=== PATIENT | male | born 1960 | race Caucasian/White ===

== ENCOUNTER 2018-03-26 12:09 | Emergency (ER) | payer BC ==
--- NOTE | 2018-03-26 13:27 | EKG ---
Test Date: 2018-03-26 Test Time: 12:25:02 Wardrobe Coordinator: FISH MEASUREMENT RESULTS: Intervals: Rate: 87 CA: 182 QRSD: 104 QT: 382 QTc: 459 [place]e: P: 36 CA: 182 QRS: 27 T: 39 INTERPRETIVE STATEMENTS: Normal sinus rhythm Normal ECG Compared to ECG 08/05/2014 12:03:10 No significant changes Electronically Signed On 03-26-18 13:27:01 CDT by Kodi Puente
[2018-03-26 13:29] LABS: Absolute Lymphocytes (CBC) 2.2 K/uL (0.7-4.9); Absolute Monocytes 0.6 K/uL (0.1-1.3); Absolute Neutrophil 5.8 K/uL (1.8-8.0); Basophils % 1.2 % (0-1.3); Lymphocytes % 24.8 % (15.3-44.8); MCV 95.1 fL (80-100); MPV 7.1 fL (7.6-11.3); Monocytes % 7.3 % (3.3-12.3); RBC Red Blood Cell Count 4.52 M/uL (4.33-5.43)
--- NOTE | 2018-03-26 13:32 | RAD REPORT ---
EXAM DESCRIPTION: CT - Head Brain Wo Cont - 03/26/2018 1:24 pm CLINICAL HISTORY: Dizziness, weakness, hypertension COMPARISON: None. TECHNIQUE: Axial 5 mm thick images of the head were obtained without IV contrast. All CT scans are performed using dose optimization technique as appropriate and may include automated exposure control or mA/KV adjustment according to patient size. FINDINGS: No intracranial hemorrhage, mass, edema or shift of mid-line structures. No acute cortical based infarction. No cortical edema or sulcal effacement. Early bifrontal lobe volume loss changes a re present. No measurable chronic ischemic change. No abnormal extra-axial fluid collections. Ventric les are normal. Mastoid air cells and visualized portions of the paranasal sinuses are clear. No acute bony findings. IMPRESSION: Negative non-contrast CT head examination for acute finding. Early bifrontal lobe volume loss.
[2018-03-26 13:36] LABS: Protime INR 0.97
[2018-03-26 13:42] LABS: Potassium 3.7 mEq/L (3.6-5.0)
--- NOTE | 2018-03-26 13:42 | RAD REPORT ---
EXAM DESCRIPTION: RAD - Chest Single View - 03/26/2018 1:37 pm CLINICAL HISTORY: Dizziness, shortness of breath COMPARISON: July 2014 TECHNIQUE: AP portable chest image was obtained 1330 hours . FINDINGS: No peripheral mass, consolidation or failure finding. Lung markings are similar to the com parison. Trachea is midline. Heart and vasculature are normal. No measurable pleural effusion and no pneumothorax. No gross bony abnormality seen. No acute aortic findings suspected. IMPRESSION: No acute cardiopulmonary process. No significant change from comparison.
[2018-03-26 13:51] LABS: Albumin 4.1 g/dL (3.2-5.5); Bilirubin Direct 0.2 mg/dL (0-0.2); Bilirubin Total 0.9 mg/dL (0.3-1.2); CKMB Creatine Kinase MB 1.1 ng/ml (0.3-4.0); Magnesium 1.9 mg/dL (1.8-2.5); Protein, Total 7.2 g/dL (6.0-8.3)
[2018-03-26 14:20] LABS: Urine Blood NEGATIVE (NEG); Urine Glucose NEGATIVE (NEG); Urine Protein NEGATIVE (NEG); Urine pH 5.5 (5.0-7.0)
[2018-03-26] MEDS ORDERED: ASPIRIN 81 MG CHEWABLE TABLET ONE (14:51)
--- NOTE | 2018-03-26 15:10 | EDPHYS ---
Physician Documentation [facility] Name: Harry Hughes Age: 58 yrs Sex: Male : 1960 Arrival Date: 03/26/2018 Time: 12:12 Bed 25 Private MD: ED Physician Demetri Davis HPI: 03/26 12:30 This 58 yrs old Male presents to ER via Ambulatory with complaints of cp Dizziness, High Blood Pressure. 12:30 The patient presents with lightheadedness. cp 12:30 Onset: The symptoms/episode began/occurred this morning, after awakening and continued cp at work. Was seen at employee clinic and blood pressure was measured to be elevated. Associated signs and symptoms: Pertinent negatives: abdominal pain, blurred vision, chest pain, diaphoresis, focal weakness, headache, near-syncope, numbness, palpitations, seizure, shortness of breath, syncope, vomiting. Patient's baseline: Neuro: alert and fully oriented, Motor: no deficits, Ambulation: walks without assistance, Speech: normal. Patient reports symptoms resolved while in ED. Historical: - Allergies: 12:19 No Known Allergies; hj - Home Meds: 12:19 hydrochlorothiazide 12.5 mg Oral cap 1 cap once daily [Active]; atorvastatin 20 mg oral hj tab 1 tab once daily [Active]; lisinopril 30 mg Oral tab 1 tab once daily [Active]; amlodipine 5 mg tab 1 tab once daily [Active]; allopurinol 300 mg Oral tab 1 tab once daily [Active]; verapamil 240 mg Oral C24P 1 cap once daily [Active]; aspirin 81 mg Oral TbEC 1 tab once daily [Active]; loratadine 10 mg oral TbDL 1 tab once daily [Active]; Flonase 50 mcg/actuation Nasal spsn 1 spray once daily [Active]; Zinc Sulfate Oral [Active]; Vitamin D3 oral oral [Active]; vitamin F63-tzdci acid oral oral [Active]; - PMHx: 12:19 Hyperlipidemia; Hypertension; CKD; hj - PSHx: 12:19 Knee surgery; hj - Immunization history:: Pneumococcal vaccine status is unknown. - Social history:: Smoking status: unknown. ROS: 12:35 Constitutional: Negative for body aches, chills, fever, poor PO intake. cp 12:35 Eyes: Negative for injury, pain, redness, and discharge. cp Exam: 12:41 Constitutional: The patient appears in no acute distress, alert, awake, cp non-diaphoretic, non-toxic, well developed, well nourished. 12:41 Head/Face: Normocephalic, atraumatic. Eyes: Pupils equal round and reactive to light, cp extra-ocular motions intact. Lids and lashes normal. Conjunctiva and sclera are non-icteric and not injected. Cornea within normal limits. Periorbital areas with no swelling, redness, or edema. ENT: Nares patent. No nasal discharge, no septal abnormalities noted. Tympanic membranes are normal and external auditory canals are clear. Oropharynx with no redness, swelling, or masses, exudates, or evidence of obstruction, uvula midline. Mucous membranes moist. Neck: Trachea midline, no thyromegaly or masses palpated, and no cervical lymphadenopathy. Supple, full range of motion without nuchal rigidity, or vertebral point tenderness. No Meningismus. Chest/axilla: Normal chest wall appearance and motion. Nontender with no deformity. No lesions are appreciated. 12:41 Cardiovascular: Rate: normal, Rhythm: regular, Pulses: Pulses are 2+ in right radial artery and left radial artery. Edema: is not appreciated, JVD: is not appreciated. 12:41 Respiratory: the patient does not display signs of respiratory distress, Respirations: normal, no use of accessory muscles, no retractions, no splinting, no tachypnea, labored breathing, is not present, Breath sounds: are clear throughout, no decreased breath sounds, no stridor, no wheezing. 12:41 Abdomen/GI: Inspection: abdomen appears normal, Bowel sounds: active, all quadrants, Palpation: abdomen is soft and non-tender, in all quadrants, rebound tenderness, is not appreciated, voluntary guarding, is not appreciated, involuntary guarding, is not appreciated. 12:41 Back: pain, is absent, ROM is normal. 12:41 Skin: cellulitis, is not appreciated, no rash present. 12:41 Neuro: Orientation: to person, place \T\ time. Mentation: lucid, able to follow commands, Cerebellar function: is grossly normal, Romberg testing is negative, Motor: moves all fours, strength is normal, Sensation: no obvious gross deficits. 14:33 ECG was reviewed by the Attending Physician. cp Vital Signs: 12:19 BP 117 / 95; Pulse 93; Resp 18; Temp 98.3(TE); Pulse Ox 96% on R/A; Weight 124.74 kg; hj Height 6 ft. 0 in. (182.88 cm); Pain 0/10; 12:47 BP 116 / 87 Supine; Pulse 85; la1 12:47 BP 129 / 89 Sitting; Pulse 88; la1 12:47 BP 121 / 90 Standing; Pulse 96; la1 14:54 BP 125 / 98; Pulse 82; Resp 19; Pulse Ox 97% on R/A; la1 12:19 Body Mass Index 37.30 (124.74 kg, 182.88 cm) hj MDM: 12:23 Patient medically screened. cp 13:00 Differential diagnosis: cardiac arrhythmia, CVA, generalized weakness, GI bleed, cp idiopathic dizziness, TIA. 15:08 Data reviewed: vital signs, nurses notes, lab test result(s), EKG, radiologic studies, cp CT scan, plain films, and as a result, I will discharge patient. 15:08 Counseling: I had a detailed discussion with the patient and/or guardian regarding: the cp historical points, exam findings, and any diagnostic results supporting the discharge/admit diagnosis, lab results, the need for outpatient follow up, a family practitioner, to return to the emergency department if symptoms worsen or persist or if there are any questions or concerns that arise at home. 03/26 13:11 Order name: Basic Metabolic Panel; Complete Time: 14:30 cp 03/26 14:30 Interpretation: Normal except: BUN 21; CRE 1.33; GFR 55. cp 03/26 13:11 Order name: BNP; Complete Time: 14:30 cp 03/26 13:11 Order name: CBC with Diff; Complete Time: 14:30 cp 03/26 14:31 Interpretation: Normal except: MPV 7.1. cp 03/26 13:11 Order name: Ckmb; Complete Time: 14:30 cp 03/26 13:11 Order name: CPK; Complete Time: 14:30 cp 03/26 13:11 Order name: LFT's; Complete Time: 14:30 cp 03/26 13:11 Order name: Magnesium; Complete Time: 14:30 cp 03/26 13:11 Order name: PT-INR; Complete Time: 14:30 cp 03/26 13:11 Order name: Ptt, Activated; Complete Time: 14:30 cp 03/26 13:11 Order name: Troponin (emerg Dept Use Only); Complete Time: 14:30 cp 03/26 13:11 Order name: XRAY Chest (1 view); Complete Time: 14:30 cp 03/26 14:31 Interpretation: Report review. cp 03/26 13:11 Order name: CT Head Brain wo Cont; Complete Time: 14:30 cp 03/26 14:31 Interpretation: Report reviewed. cp 03/26 14:17 Order name: Urine Dipstick--Ancillary (enter results); Complete Time: 14:30 bd 03/26 12:23 Order name: EKG; Complete Time: 12:23 cp 03/26 12:23 Order name: EKG - Nurse/Tech; Complete Time: 12:24 cp 03/26 12:30 Order name: Orthostatics; Complete Time: 12:46 cp 03/26 13:11 Order name: Cardiac monitoring; Complete Time: 13:28 cp 03/26 13:11 Order name: IV Saline Lock; Complete Time: 13:28 cp 03/26 13:11 Order name: Labs collected and sent; Complete Time: 13:28 cp 03/26 13:11 Order name: O2 Per Protocol; Complete Time: 13:28 cp 03/26 13:11 Order name: O2 Sat Monitoring; Complete Time: 13:28 cp 03/26 13:11 Order name: Urine Dipstick-Ancillary (obtain specimen); Complete Time: 13:43 cp EC:33 Rate is 87 beats/min. Rhythm is regular. SC interval is normal. QRS interval is cp prolonged at 104 msec. QT interval is normal. No ST changes noted. Interpreted by me. Reviewed by me. Administered Medications: 14:54 Drug: Aspirin Chewable Tablet 324 mg Route: PO; la1 15:25 Follow up: Response: No adverse reaction rk2 15:15 CANCELLED (Physician Discretion): NS 0.9% 1000 ml IV at 100 ml/hr continuous cp Disposition: 16:53 Co-signature as Attending Physician, Demetri Davis MD. rn Disposition: 03/26/18 15:10 Discharged to Home. Impression: Dizziness. - Condition is Stable. - Discharge Instructions: Dizziness, Aspirin and Your Heart. - Prescriptions for Meclizine 25 mg Oral Tablet - take 1 tablet by ORAL route every 8 hours As needed; 30 tablet. Zofran 4 mg Oral Tablet - take 1 tablet by ORAL route every 12 hours As needed; 20 tablet. - Medication Reconciliation Form, Thank You Letter, Antibiotic Education, Prescription Opioid Use form. - Follow up: Private Physician; When: 1 - 2 days; Reason: Recheck today's complaints. - Problem is new. - Symptoms have improved. Signatures: Dispatcher [employer] EDMS Demetri Davis MD MD rn Attema, Lee, RN RN la1 Saturnino Zamudio RN RN hj Vernon De La Vega, RAUL PA Anushka Martins RN RN rk2 Corrections: (The following items were deleted from the chart) 15:15 15:03 NS 0.9% 1000 ml IV at 100 ml/hr continuous ordered. cp cp 15:26 15:10 03/26/2018 15:10 Discharged to Home. Impression: Dizziness. Condition is Stable. rk2 Forms are Medication Reconciliation Form, Thank You Letter, Antibiotic Education, Prescription Opioid Use. Follow up: Private Physician; When: 1 - 2 days; Reason: Recheck today's complaints. Problem is new. Symptoms have improved. cp
--- NOTE | 2018-03-26 15:10 | ER ---
Nurse's Notes [facility] Name: Harry Hughes Age: 58 yrs Sex: Male : 1960 Arrival Date: 03/26/2018 Time: 12:12 Bed 25 Private MD: Diagnosis: Dizziness Presentation: 03/26 12:14 Presenting complaint: Patient states: i feel fuzzy today, my heart is debbie fluttery hj today; denies SOB; i feel dizzy as well; i checked my BP- 154/80; HR- 95;. Transition of care: patient was not received from another setting of care. Onset of symptoms was March 26, 2018. Initial Sepsis Screen: Does the patient meet any 2 criteria? No. Patient's initial sepsis screen is negative. Does the patient have a suspected source of infection? No. Patient's initial sepsis screen is negative. Care prior to arrival: None. 12:14 Method Of Arrival: Ambulatory 12:14 Acuity: DOUGLAS 3 hj Triage Assessment: 12:19 General: Appears in no apparent distress. uncomfortable, Behavior is calm, cooperative, hj appropriate for age. Pain: Denies pain. Historical: - Allergies: 12:19 No Known Allergies; hj - Home Meds: 12:19 hydrochlorothiazide 12.5 mg Oral cap 1 cap once daily [Active]; atorvastatin 20 mg oral hj tab 1 tab once daily [Active]; lisinopril 30 mg Oral tab 1 tab once daily [Active]; amlodipine 5 mg tab 1 tab once daily [Active]; allopurinol 300 mg Oral tab 1 tab once daily [Active]; verapamil 240 mg Oral C24P 1 cap once daily [Active]; aspirin 81 mg Oral TbEC 1 tab once daily [Active]; loratadine 10 mg oral TbDL 1 tab once daily [Active]; Flonase 50 mcg/actuation Nasal spsn 1 spray once daily [Active]; Zinc Sulfate Oral [Active]; Vitamin D3 oral oral [Active]; vitamin D73-venfy acid oral oral [Active]; - PMHx: 12:19 Hyperlipidemia; Hypertension; CKD; hj - PSHx: 12:19 Knee surgery; hj - Immunization history:: Pneumococcal vaccine status is unknown. - Social history:: Smoking status: unknown. Screenin:48 Abuse screen: Denies threats or abuse. Nutritional screening: No deficits noted. la1 Tuberculosis screening: No symptoms or risk factors identified. Fall Risk None identified. Assessment: 12:48 General: Appears in no apparent distress. Behavior is calm, cooperative. Pain: Denies la1 pain. Neuro: Level of Consciousness is awake, alert, obeys commands, Oriented to person, place, time, situation. Cardiovascular: Capillary refill < 3 seconds Patient's skin is warm and dry. Respiratory: Airway is patent Respiratory effort is even, unlabored, Respiratory pattern is regular, symmetrical, Breath sounds are clear bilaterally. GI: Abdomen is round non-distended, Bowel sounds present X 4 quads. : No signs and/or symptoms were reported regarding the genitourinary system. 14:49 Reassessment: Patient appears in no apparent distress at this time. No changes from la1 previously documented assessment. Patient and/or family updated on plan of care and expected duration. Pain level reassessed. Patient is alert, oriented x 3, equal unlabored respirations, skin warm/dry/pink. Vital Signs: 12:19 BP 117 / 95; Pulse 93; Resp 18; Temp 98.3(TE); Pulse Ox 96% on R/A; Weight 124.74 kg; hj Height 6 ft. 0 in. (182.88 cm); Pain 0/10; 12:47 BP 116 / 87 Supine; Pulse 85; la1 12:47 BP 129 / 89 Sitting; Pulse 88; la1 12:47 BP 121 / 90 Standing; Pulse 96; la1 14:54 BP 125 / 98; Pulse 82; Resp 19; Pulse Ox 97% on R/A; la1 12:19 Body Mass Index 37.30 (124.74 kg, 182.88 cm) ED Course: 12:12 Patient arrived in ED. mr 12:16 Triage completed. hj 12:20 Phani Mcclure, RN is Primary Nurse. la1 12:20 Arm band placed on right wrist. hj 12:23 Vernon De La Vega PA is PHCP. cp 12:23 Demetri Davis MD is Attending Physician. cp 12:33 EKG done, by computer technical specialist. reviewed by Demetri Davis MD. tc 12:48 Call light in reach. film touch up inspector on. Pulse ox on. NIBP on. la1 13:24 CT Head Brain wo Cont In Process Unspecified. EDMS 13:28 No provider procedures requiring assistance completed. Inserted saline lock: 20 gauge la1 in left antecubital area, using aseptic technique. Blood collected. 13:37 XRAY Chest (1 view) In Process Unspecified. EDMS 15:26 IV discontinued. rk2 Administered Medications: 14:54 Drug: Aspirin Chewable Tablet 324 mg Route: PO; la1 15:25 Follow up: Response: No adverse reaction rk2 15:15 CANCELLED (Physician Discretion): NS 0.9% 1000 ml IV at 100 ml/hr continuous cp Outcome: 15:10 Discharge ordered by MD. cp 15:26 Discharged to home ambulatory. rk2 15:26 Condition: good 15:26 Discharge instructions given to patient, Prescriptions given X 2. 15:26 Patient left the ED. rk2 Signatures: Dispatcher [employer] EDMS Rody Keith AustenNina, geological technician EKG Ttc Phani Mcclure RN RN la1 Saturnino Zamudio RN RN Vernon Clement PA PA cp Kidder, Rhonda, RN RN rk2
== END 2018-03-26 15:26 | disposition home or self-care (01) ==
LOC: ER 12:09
DX: R42 Dizziness and giddiness (principal); I12.9 Hypertensive chronic kidney disease with stage 1 through stage 4 chronic kidney disease, or unspecified chronic kidney disease; N18.9 Chronic kidney disease, unspecified; E78.5 Hyperlipidemia, unspecified; Z79.82 Long term (current) use of aspirin
CPT/HCPCS: 36415; 70450; 71045; 80048; 80076; 81003; 82550; 82553; 83735; 83880; 84484; 85025; 85610; 85730; 93005; 99285

== ENCOUNTER 2019-12-22 19:17 | Emergency (ER) | payer BC ==
[2019-12-22] MEDS ORDERED: NA CHLORIDE 0.9% 1,000 ML ONE (20:06)
[2019-12-22] MEDS ORDERED: METOPROLOL TARTRATE 5 MG/5 ML INJ IV ONE (20:06)
[2019-12-22 20:14] LABS: Absolute Lymphocytes (CBC) 2.4 K/uL (0.7-4.9); Basophils % 1.1 % (0-1.3); Hematocrit 43.6 % (39.6-49.0); Lymphocytes % 26.7 % (15.3-44.8); MPV 7.5 fL (7.6-11.3); RBC Red Blood Cell Count 4.43 M/uL (4.33-5.43)
[2019-12-22 20:15] LABS: Protime INR 1.03
[2019-12-22 20:33] LABS: ALT/SGPT 18 U/L (12-78); AST/SGOT 12 U/L (15-37); Albumin 3.5 g/dL (3.4-5.0); Alkaline Phosphatase 59 U/L (45-117); BUN Blood Urea Nitrogen 21 mg/dL (7-18); Bicarbonate 26 mmol/L (21-32); Bilirubin Direct 0.1 mg/dL (0-0.2); Bilirubin Total 0.5 mg/dL (0.2-1.0); Glucose Level 80 mg/dL (74-106); Magnesium 1.9 mg/dL (1.8-2.4); NT PRO-BNP 226 pg/mL (<125); Potassium 3.5 mmol/L (3.5-5.1); Protein, Total 6.7 g/dL (6.4-8.2); Sodium Level 146 mmol/L (136-145); Troponin (Emerg Dept Use Only) < 0.02 ng/mL (0.0-0.045)
--- NOTE | 2019-12-22 21:41 | ER ---
Nurse's Notes [facility] Name: Harry Hughes Age: 59 yrs Sex: Male : 1960 Arrival Date: 12/22/2019 Time: 19:19 Bed 15 Private MD: Diagnosis: Palpitations. Near syncope Presentation: 12/22 19:28 Presenting complaint: Patient states: Light headedness that started one hour ago, aj1 states that he has had episodes of A-Fib in the past, but they are having a hard time catching it. Reports chest tightness, denies palpitations. Transition of care: patient was not received from another setting of care. Onset of symptoms was December 22, 2019. Risk Assessment: Do you want to hurt yourself or someone else? Patient reports no desire to harm self or others. Initial Sepsis Screen: Does the patient meet any 2 criteria? HR > 90 bpm. No. Patient's initial sepsis screen is negative. Does the patient have a suspected source of infection? No. Patient's initial sepsis screen is negative. Care prior to arrival: None. 19:28 Method Of Arrival: Ambulatory [facility] 19:28 Method Of Arrival: Ambulatory [facility] 19:28 Acuity: DOUGLAS 2 jb4 Triage Assessment: :33 General: Appears in no apparent distress. comfortable, Behavior is calm, cooperative, aj1 appropriate for age. Pain: Complains of pain in chest Pain currently is 1 out of 10 on a pain scale. Quality of pain is described as pressure. Neuro: Level of Consciousness is awake, alert, obeys commands, Oriented to person, place, time, situation. Cardiovascular: Patient's skin is warm and dry. Cardiovascular: Reports chest pain, lightheadedness. Respiratory: Airway is patent Respiratory effort is even, unlabored, Respiratory pattern is regular, symmetrical. Historical: - Allergies: 19:33 No Known Allergies; aj1 - Home Meds: 19:33 allopurinol 300 mg Oral tab 1 tab once daily [Active]; amlodipine 5 mg tab 1 tab once aj1 daily [Active]; hydrochlorothiazide 12.5 mg Oral cap 1 cap once daily [Active]; lisinopril 30 mg Oral tab 1 tab once daily [Active]; tamsulosin 0.4 mg oral cp24 1 cap once daily [Active]; verapamil 240 mg Oral C24P 1 cap once daily [Active]; aspirin 81 mg Oral TbEC 1 tab once daily [Active]; Flonase 50 mcg/actuation Nasal spsn 1 spray once daily [Active]; loratadine 10 mg Oral TbDL 1 tab once daily [Active]; vitamin A94-eipkq acid Oral [Active]; Zinc Sulfate Oral [Active]; Vitamin D3 Oral [Active]; CoQ-10 100 mg oral cap daily [Active]; Fish Oil oral oral daily [Active]; magnesium oxide 250 mg Oral tab daily [Active]; - PMHx: 19:33 CKD; Hyperlipidemia; Hypertension; kidney disease; Atrial Fib; aj1 - Immunization history:: Flu vaccine is not up to date. - Coronavirus screen:: The patient has NOT traveled to [place], [place], or [place] in the past 14 days. - Social history:: Smoking status: Patient/guardian denies using tobacco. - Ebola Screening: : Patient denies travel to an Ebola-affected area in the 21 days before illness onset. Screenin:40 Abuse screen: Denies threats or abuse. Nutritional screening: No deficits noted. jb4 Tuberculosis screening: No symptoms or risk factors identified. Fall Risk None identified. Assessment: 19:40 General: Appears in no apparent distress. uncomfortable, Behavior is calm, cooperative, jb4 appropriate for age, PT states " it feels like my heart is fluttering in my chest, but it comes and goes and when it does, it radiates up into my neck.". Pain: Denies pain. Neuro: Level of Consciousness is awake, alert, obeys commands, Oriented to person, place, time, situation, Reports dizziness, feeling light headed. Cardiovascular: Patient's skin is warm and dry. Respiratory: Airway is patent Respiratory effort is even, unlabored, Respiratory pattern is regular, symmetrical. GI: No signs and/or symptoms were reported involving the gastrointestinal system. : No signs and/or symptoms were reported regarding the genitourinary system. EENT: No signs and/or symptoms were reported regarding the EENT system. Derm: Skin is intact, Skin is pink, warm \\T\\ dry. Musculoskeletal: Circulation, motion, and sensation intact. Range of motion: intact in all extremities. 19:45 Reassessment: Pt heart rate 202, reports feeling light headed and dizzy, provider jb4 notified, see MAR for orders. 21:00 Reassessment: Patient appears in no apparent distress at this time. Patient and/or jb4 family updated on plan of care and expected duration. Pain level reassessed. Patient is alert, oriented x 3, equal unlabored respirations, skin warm/dry/pink. Patient states feeling better. 22:06 Reassessment: Patient appears in no apparent distress at this time. Patient and/or jb4 family updated on plan of care and expected duration. Pain level reassessed. Patient is alert, oriented x 3, equal unlabored respirations, skin warm/dry/pink. PT and family verbalized understanding of d/c and follow up instructions. Patient states feeling better. Vital Signs: 19:33 BP 125 / 89; Pulse 98; Resp 18; Temp 97.9; Pulse Ox 98% on R/A; Weight 108.86 kg (R); aj1 Height 6 ft. 0 in. (182.88 cm) (R); Pain 1/10; 20:30 BP 104 / 87; Pulse 83; Resp 11 S; Pulse Ox 97% on R/A; jb4 21:10 BP 122 / 89; Pulse 85; Resp 19 S; Pulse Ox 95% on R/A; jb4 21:30 BP 123 / 88; Pulse 86; Resp 17 S; Pulse Ox 97% on R/A; jb4 19:33 Body Mass Index 32.55 (108.86 kg, 182.88 cm) aj1 ED Course: 19:19 Patient arrived in ED. es 19:30 Triage completed. aj1 19:33 Arm band placed on Patient placed in an exam room. aj1 19:37 Freddy Godoy, RN is Primary Nurse. jb4 19:40 Tadeo Jimenez MD is Attending Physician. pkl 19:40 Patient has correct armband on for positive identification. Placed in gown. Bed in low jb4 position. Call light in reach. Side rails up X 1. playground monitor on. Pulse ox on. NIBP on. 20:05 Initial lab(s) drawn, by me, sent to lab. EKG done, by ED staff, reviewed by Tadeo persaud MD. Inserted saline lock: 20 gauge in right forearm, using aseptic technique. 20:49 XRAY Chest (1 view) In Process Unspecified. EDMS 20:50 X-ray completed. Portable x-ray completed in exam room. Patient tolerated procedure mh1 well. 21:40 Kodi Puente MD is Referral Physician. pkl 22:08 No provider procedures requiring assistance completed. IV discontinued, intact, jb4 bleeding controlled, No redness/swelling at site. Pressure dressing applied. Administered Medications: 20:13 Drug: NS 0.9% 1000 ml Route: IV; Rate: 100 ml/hr; Site: right forearm; jb4 22:00 Follow up: Response: No adverse reaction; IV Status: Order to discontinue infusion jb4 20:13 Drug: Lopressor 5 mg Route: IVP; Site: right forearm; jb4 21:00 Follow up: Response: No adverse reaction; No adverse reaction, Heart rate decreased and jb4 maintained at 80-90 Outcome: 21:41 Discharge ordered by . pkl 22:08 Discharged to home ambulatory, with family. jb4 22:08 Condition: stable 22:08 Discharge instructions given to patient, family, Instructed on discharge instructions, follow up and referral plans. medication usage, Demonstrated understanding of instructions, follow-up care, medications, Prescriptions given X 1. 22:10 Patient left the ED. jb4 Signatures: Dispatcher [employer] Anya Case RN RN aj1 Tadeo Jimenez MD MD pk Anna Baum [facility] Freddy Godoy, RN RN jb4 Corrections: (The following items were deleted from the chart) 21:05 19:28 Acuity: DOUGLAS 3 aj1 jb4 22:08 21:30 No provider procedures requiring assistance completed. jb4 jb4 22:08 21:30 IV discontinued, intact, bleeding controlled, No redness/swelling at site. jb4 Pressure dressing applied, jb4
--- NOTE | 2019-12-22 21:42 | EDPHYS ---
Physician Documentation [facility] Name: Harry Hughes Age: 59 yrs Sex: Male : 1960 Arrival Date: 12/22/2019 Time: 19:19 Bed 15 Private MD: ED Physician Tadeo Jimenez HPI: 12/22 19:56 This 59 yrs old Male presents to ER via Ambulatory with complaints of Lighted pkl headed, Near Syncope, Blood Pressure Problem, heart fluter. 19:56 The patient presents with a history of irregular heart beat. Context: The symptoms pkl occur and the patient has a history of Atrial fibrillation. Onset: The symptoms/episode began/occurred just prior to arrival, 1 hour(s) ago. Associated signs and symptoms: Pertinent positives: lightheadedness, near-syncope, tightness in chest. The patient has experienced similar episodes in the past, a few times. Historical: - Allergies: 19:33 No Known Allergies; aj1 - Home Meds: 19:33 allopurinol 300 mg Oral tab 1 tab once daily [Active]; amlodipine 5 mg tab 1 tab once aj1 daily [Active]; hydrochlorothiazide 12.5 mg Oral cap 1 cap once daily [Active]; lisinopril 30 mg Oral tab 1 tab once daily [Active]; tamsulosin 0.4 mg oral cp24 1 cap once daily [Active]; verapamil 240 mg Oral C24P 1 cap once daily [Active]; aspirin 81 mg Oral TbEC 1 tab once daily [Active]; Flonase 50 mcg/actuation Nasal spsn 1 spray once daily [Active]; loratadine 10 mg Oral TbDL 1 tab once daily [Active]; vitamin B33-afrfy acid Oral [Active]; Zinc Sulfate Oral [Active]; Vitamin D3 Oral [Active]; CoQ-10 100 mg oral cap daily [Active]; Fish Oil oral oral daily [Active]; magnesium oxide 250 mg Oral tab daily [Active]; - PMHx: 19:33 CKD; Hyperlipidemia; Hypertension; kidney disease; Atrial Fib; aj1 - Immunization history:: Flu vaccine is not up to date. - Coronavirus screen:: The patient has NOT traveled to [place], [place], or [place] in the past 14 days. - Social history:: Smoking status: Patient/guardian denies using tobacco. - Ebola Screening: : Patient denies travel to an Ebola-affected area in the 21 days before illness onset. ROS: 19:56 Eyes: Negative for injury, pain, redness, and discharge, ENT: Negative for injury, pkl pain, and discharge, Neck: Negative for injury, pain, and swelling. 19:56 Cardiovascular: Positive for palpitations. 19:56 Respiratory: Negative for cough, shortness of breath. 19:56 Abdomen/GI: Negative for abdominal pain, nausea, vomiting, and diarrhea. 19:56 Back: Negative for acute changes. 19:56 : Negative for urinary symptoms. 19:56 MS/extremity: Negative for acute changes. 19:56 Skin: Negative for rash. 19:56 Neuro: Positive for near syncope, Negative for altered mental status, loss of consciousness. Exam: 19:56 Head/Face: Normocephalic, atraumatic. Eyes: Pupils equal round and reactive to light, pkl extra-ocular motions intact. Lids and lashes normal. Conjunctiva and sclera are non-icteric and not injected. Cornea within normal limits. Periorbital areas with no swelling, redness, or edema. ENT: Nares patent. No nasal discharge, no septal abnormalities noted. Tympanic membranes are normal and external auditory canals are clear. Oropharynx with no redness, swelling, or masses, exudates, or evidence of obstruction, uvula midline. Mucous membranes moist. Neck: Trachea midline, no thyromegaly or masses palpated, and no cervical lymphadenopathy. Supple, full range of motion without nuchal rigidity, or vertebral point tenderness. No Meningismus. Chest/axilla: Normal chest wall appearance and motion. Nontender with no deformity. No lesions are appreciated. Cardiovascular: Regular rate and rhythm with a normal S1 and S2. No gallops, murmurs, or rubs. Normal PMI, no JVD. No pulse deficits. Respiratory: Lungs have equal breath sounds bilaterally, clear to auscultation and percussion. No rales, rhonchi or wheezes noted. No increased work of breathing, no retractions or nasal flaring. Abdomen/GI: Soft, non-tender, with normal bowel sounds. No distension or tympany. No guarding or rebound. No evidence of tenderness throughout. Back: No spinal tenderness. No costovertebral tenderness. Full range of motion. Skin: Warm, dry with normal turgor. Normal color with no rashes, no lesions, and no evidence of cellulitis. MS/ Extremity: Pulses equal, no cyanosis. Neurovascular intact. Full, normal range of motion. Neuro: Awake and alert, GCS 15, oriented to person, place, time, and situation. Cranial nerves II-XII grossly intact. Motor strength 5/5 in all extremities. Sensory grossly intact. Cerebellar exam normal. Normal gait. Vital Signs: 19:33 BP 125 / 89; Pulse 98; Resp 18; Temp 97.9; Pulse Ox 98% on R/A; Weight 108.86 kg (R); aj1 Height 6 ft. 0 in. (182.88 cm) (R); Pain 1/10; 20:30 BP 104 / 87; Pulse 83; Resp 11 S; Pulse Ox 97% on R/A; jb4 21:10 BP 122 / 89; Pulse 85; Resp 19 S; Pulse Ox 95% on R/A; jb4 21:30 BP 123 / 88; Pulse 86; Resp 17 S; Pulse Ox 97% on R/A; jb4 19:33 Body Mass Index 32.55 (108.86 kg, 182.88 cm) aj1 MDM: 19:41 Patient medically screened. pkl 21:37 Data reviewed: vital signs, nurses notes, lab test result(s), EKG, radiologic studies, pkl plain films. ED course: Patient said he is feeling better. Asymptomatic. Advised to follow up with Dr. Puente in 2 to 3 days. Patient understood instructions. To return if symptoms recur. 12/22 19:55 Order name: Basic Metabolic Panel; Complete Time: 21:02 pkl 12/22 19:55 Order name: CBC with Diff; Complete Time: 20:28 pkl 12/22 19:55 Order name: LFT's; Complete Time: 21: pkl 12/22 19:55 Order name: Magnesium; Complete Time: 21:02 pkl 12/22 19:55 Order name: NT PRO-BNP; Complete Time: 21:02 pkl 12/22 19:55 Order name: PT-INR; Complete Time: 20:28 pkl 12/22 19:55 Order name: Troponin (emerg Dept Use Only); Complete Time: 21:02 pkl 12/22 19:55 Order name: XRAY Chest (1 view) pkl 12/22 19:55 Order name: EKG; Complete Time: 19:56 pkl 12/22 19:55 Order name: Cardiac monitoring; Complete Time: 20:53 pkl 12/22 19:55 Order name: EKG - Nurse/Tech; Complete Time: 20:53 pkl 12/22 19:55 Order name: IV Saline Lock; Complete Time: 20:53 pkl 12/22 19:55 Order name: Labs collected and sent; Complete Time: 20:53 pkl 12/22 19:55 Order name: O2 Per Protocol; Complete Time: 20:53 pkl 12/22 19:55 Order name: O2 Sat Monitoring; Complete Time: 20:53 pkl Administered Medications: 20:13 Drug: NS 0.9% 1000 ml Route: IV; Rate: 100 ml/hr; Site: right forearm; jb4 22:00 Follow up: Response: No adverse reaction; IV Status: Order to discontinue infusion jb4 20:13 Drug: Lopressor 5 mg Route: IVP; Site: right forearm; jb4 21:00 Follow up: Response: No adverse reaction; No adverse reaction, Heart rate decreased and jb4 maintained at 80-90 Disposition: 12/22/19 21:41 Discharged to Home. Impression: Palpitations. Near syncope. - Condition is Stable. - Prescriptions for Carvedilol 6.25 mg Oral Tablet - take 1 tablet by ORAL route 2 times per day with food; 60 tablet. - Medication Reconciliation Form, Thank You Letter, Antibiotic Education, Prescription Opioid Use form. - Follow up: Kodi Puente MD; When: 2 - 3 days; Reason: Re-evaluation by your physician. Signatures: Dispatcher [employer] Anya Case RN RN aj1 Tadeo Jimenez MD MD pkFreddy Muñiz RN RN jb4 Corrections: (The following items were deleted from the chart) 22:10 21:41 12/22/2019 21:41 Discharged to Home. Impression: Palpitations. Near syncope. jb4 Condition is Stable. Forms are Medication Reconciliation Form, Thank You Letter, Antibiotic Education, Prescription Opioid Use. Follow up: Kodi Puente; When: 2 - 3 days; Reason: Re-evaluation by your physician. pkl
[2019-12-22 22:17] VITALS: TEMP 97.9
[2019-12-22 22:22] VITALS: BP 123/88; O2SAT 97
--- NOTE | 2019-12-23 07:59 | RAD REPORT ---
EXAM DESCRIPTION: RAD - Chest Single View - 12/22/2019 8:48 pm CLINICAL HISTORY: PALPITATIONS COMPARISON: Chest Single View dated 03/26/2018 TECHNIQUE: AP portable chest image was obtained 12/22/2019 8:48 pm . FINDINGS: No focal lung parenchymal process. Interstitial pattern is similar to comparison. Heart an d vasculature are normal. No measurable pleural effusion and no pneumothorax. No acute bony abnormali ty seen. No acute aortic findings suspected. IMPRESSION: No acute cardiopulmonary process. No significant change from comparison.
--- NOTE | 2019-12-23 08:25 | EKG ---
Test Date: 2019-12-22 Test Time: 19:48:17 [employer] Sander: LEE ANN MEASUREMENT RESULTS: Intervals: Rate: 92 ME: 206 QRSD: 94 QT: 360 QTc: 445 Handley: P: 56 ME: 206 QRS: 53 T: 43 INTERPRETIVE STATEMENTS: Normal sinus rhythm Normal ECG Compared to ECG 03/26/2018 12:25:02 No significant changes Electronically Signed On 12-23-19 08:24:54 PHARMACY DISTRICT MANAGER by Kodi Puente
== END 2019-12-22 22:10 | disposition home or self-care (01) ==
LOC: ER 19:17
DX: R00.2 Palpitations (principal); I12.9 Hypertensive chronic kidney disease with stage 1 through stage 4 chronic kidney disease, or unspecified chronic kidney disease; N18.9 Chronic kidney disease, unspecified; I48.91 Unspecified atrial fibrillation; Z79.82 Long term (current) use of aspirin
CPT/HCPCS: 96361; 93005; 85025; 80048; 36415; 83735; 85610; 80076; 84484; 83880; 71045; 96374; 99285; J7030